=== PATIENT | female | born 1960 | race African-American/Black ===

== ENCOUNTER 2021-09-17 10:39 | Outpatient (CLI) | payer OTHER | END 2021-09-17 19:19 | disposition home or self-care (01) | LOC: MRI 10:39 | DX: H90.41 Sensorineural hearing loss, unilateral, right ear, with unrestricted hearing on the contralateral side (principal) | CPT/HCPCS: A9576 ==

== ENCOUNTER 2023-05-04 08:39 | Outpatient (CLI) | payer OTHER ==
[2023-05-04 10:12] LABS: PLATELET COUNT 192 K/uL (152-353)
[2023-05-04 10:47] LABS: POTASSIUM 4.8 mmol/L (3.6-5.2)
== END 2023-05-04 18:59 | disposition home or self-care (01) ==
LOC: LABW 08:39
PROVIDERS: ATTEND Internal Medicine Gastroenterology
DX: R94.5 Abnormal results of liver function studies (principal); K76.0 Fatty (change of) liver, not elsewhere classified
CPT/HCPCS: 36415; 80053; 80074; 82103; 82172; 82247; 82248; 82390; 82465; 82525; 82728; 82947; 82977; 83010; 83516; 83540; 83550; 83883; 84450; 84460; 84466; 84478; 85027; 86038